=== PATIENT | female | born 1970 ===

== ENCOUNTER → 2017-04-09 | Outpatient (CLI) | payer BC ==
--- NOTE | 2017-04-09 11:13 | DIAGNOSTIC IMAGING REPORT ---
MRI OF THE CERVICAL SPINE WITHOUT CONTRAST, INCLUDING FLEXION AND EXTENSION WITH CSF FLOW CLINICAL HISTORY: Cervical pain. Cerebellar tonsillar ectopia. COMPARISON STUDY: No previous studies for comparison. TECHNIQUE: Utilizing a 1.5 [place] magnet, sagittal and axial T2 weighted sequences of the cervical spine were obtained in the neutral, flexion and extension positions. No intravenous contrast was administered. CSF flow was evaluated in each position. FINDINGS: There is mild cerebellar tonsillar ectopia of 5 mm. The findings do not meet criteria for a Chiari I malformation. No syrinx is identified. There is slight prominence of the central canal of the cord which begins at the C5 level and extends into the upper thoracic cord. This is likely within normal limits. There is no intracanalicular mass or fluid collection. CSF flow in the anterior and posterior portions of the foramen magnum is normal in the flexion, and extension and neutral positions. Paravertebral soft tissues are unremarkable. Mild multilevel degenerative disc disease and facet arthrosis is present. At C2-C3: The central canal and neural foramen are patent. At C3-C4: The central canal and neural foramen are patent. At C4-C5: There is minimal disc bulge. Central canal and neural foramen are patent. At C5-C6: There is mild disc bulge. There is minimal narrowing of the central canal. There is minimal narrowing of the left neural foramen. At C6-C7: There is minimal disc bulge. There is minimal narrowing of the central canal. Neural foramen are patent. At C7-T1: Central canal and neural foramen are patent. IMPRESSION: 1. 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 The findings do not meet MRI criteria for a Chiari 1 malformation. Slight prominence of the central canal of the lower cervical and upper thoracic cord which is likely within normal limits. No syrinx. 2. Normal CSF flow in the neutral, flexion and extension positions. 3. Mild multilevel degenerative disc disease. 4. Mild sinus mucosal thickening. Electronically signed by: Kayden Paredes M.D. 04/09/2017 11:12 AM Dictated Date/Time: 04/09/2017 10:05 AM
== END | disposition home or self-care (01) ==
LOC: C.MRIBC 07:56
PROVIDERS: ATTEND Neurological Surgery
DX: Q04.8 Other specified congenital malformations of brain (principal)